=== PATIENT | female | born 1960 | race Caucasian/White ===

== ENCOUNTER 2016-11-05 14:40 | Inpatient (IN) | payer OTHER ==
[~2016-11-05] VITALS: Ht 167.6 cm; Wt 48.3 kg
[2016-11-05] MEDS ORDERED: SODIUM CHLORIDE 0.9% 1,000 ML IV ONE (15:14)
[2016-11-05 15:30] LABS: HEMATOCRIT 42.5 % (34.6-47.8); HEMOGLOBIN 14.2 g/dL (11.7-16.4)
[2016-11-05] MEDS ORDERED: MORPHINE SULFATE 4 MG/ML, 1ML IVPush PRN (15:30)
[2016-11-05] MEDS ORDERED: ONDANSETRON 2MG/ML, 2ML IVPush ONE (15:30)
[2016-11-05] MEDS ORDERED: SODIUM CHLORIDE 0.9% 1,000ML IVBOLUS ONE (15:30)
[2016-11-05 15:41] LABS: BLOOD UREA NITROGEN 14 mg/dL (7-18)
[2016-11-05 15:45] LABS: ASPARTATE AMINO TRANSFERASE 28 U/L (15-37)
[2016-11-05] MEDS ORDERED: ONDANSETRON 2MG/ML, 2ML ONE (16:16)
[2016-11-05] MEDS ORDERED: MORPHINE SULFATE 4 MG/ML, 1ML ONE (16:16)
[2016-11-05 16:25] LABS: PATH.CAST-FLAG NOT PRESENT; SPERM-FLAG NOT PRESENT; SRC-FLAG NOT PRESENT; XTAL-FLAG NOT PRESENT; YLC-FLAG NOT PRESENT
[2016-11-05] MEDS ORDERED: PROM12.55 PO (16:57)
[2016-11-05] MEDS ORDERED: OXYC-306 PO (16:57)
[2016-11-05] MEDS ORDERED: ZOLP-413 PO (16:57)
[2016-11-05] MEDS ORDERED: D-ME1CAP40 PO (16:57)
[2016-11-05] MEDS ORDERED: hydrALAzine 20 MG/ML, 1ML IVPush PRN (17:30)
[2016-11-05] MEDS ORDERED: ONDANSETRON 2MG/ML, 2ML IVPush PRN (17:30)
[2016-11-05] MEDS: SODIUM CHLORIDE 0.9% 1,000 ML IV SCH (21:09)
[2016-11-05] MEDS: morphine SULFATE 10 MG/ML, 1ML IVPush PRN ×2 (21:09→21:38)
[2016-11-05] MEDS: CEFTRIAXONE PMX 1GM/50ML 50 ML IV SCH (21:09)
[2016-11-05 21:45] VITALS: BP 123/78
[2016-11-05 22:02] VITALS: BP 123/78
[2016-11-06] MEDS: ZOLPIDEM 5MG TABLET PO PRN ×2 (01:02→21:42)
[2016-11-06 01:03] VITALS: BP 108/68
[2016-11-06] MEDS: SODIUM CHLORIDE 0.9% 1,000 ML IV SCH ×3 (03:30→17:41)
[2016-11-06 06:05] LABS: ASPARTATE AMINO TRANSFERASE 22 U/L (15-37); BLOOD UREA NITROGEN 13 mg/dL (7-18)
[2016-11-06 07:10] VITALS: BP 118/72
[2016-11-06] MEDS: PANTOPRAZOLE 40 MG IV IVPush SCH (08:13)
[2016-11-06] MEDS: IBUPROFEN 200 MG TABLET PO PRN ×2 (10:21→16:44)
[2016-11-06 13:42] VITALS: BP 121/73
[2016-11-06] MEDS: morphine SULFATE 10 MG/ML, 1ML IVPush PRN (16:00)
[2016-11-06] MEDS: CEFTRIAXONE PMX 1GM/50ML 50 ML IV SCH (17:41)
[2016-11-06] MEDS ORDERED: OXYcodone/APAP 7.5/325MG TABLET PO PRN (20:00)
[2016-11-06] MEDS: ARTIFICIAL TEARS OPHTH SOLN 15ML EACHEYE PRN (21:42)
[2016-11-07] MEDS: SODIUM CHLORIDE 0.9% 1,000 ML IV SCH ×2 (01:07→07:15)
[2016-11-07 01:10] VITALS: BP 119/74
[2016-11-07] MEDS: IBUPROFEN 200 MG TABLET PO PRN ×2 (01:13→11:18)
[2016-11-07 06:31] LABS: BLOOD UREA NITROGEN 7 mg/dL (7-18)
[2016-11-07 06:34] LABS: ASPARTATE AMINO TRANSFERASE 21 U/L (15-37)
[2016-11-07] MEDS: PANTOPRAZOLE 40 MG IV IVPush SCH (08:41)
[2016-11-07] MEDS: ARTIFICIAL TEARS OPHTH SOLN 15ML EACHEYE PRN (11:24)
[2016-11-07] MEDS ORDERED: KETO10TA PO (12:33)
== END 2016-11-07 15:25 | disposition home or self-care (01) | DRG 439 ==
LOC: ED 16:57 → EDIP 16:58 → ED 17:15 → SUATTDRO 17:18 → 3NE 18:36 → DCLOUNGE 11-07 15:11
PROVIDERS: ADMIT Hospitalist; ATTEND Internal Medicine
DX: K85.90 Acute pancreatitis without necrosis or infection, unspecified (principal); N39.0 Urinary tract infection, site not specified; F11.20 Opioid dependence, uncomplicated; K86.1 Other chronic pancreatitis; G89.29 Other chronic pain; Z80.3 Family history of malignant neoplasm of breast; Z82.49 Family history of ischemic heart disease and other diseases of the circulatory system; Z90.49 Acquired absence of other specified parts of digestive tract; Z90.710 Acquired absence of both cervix and uterus
CPT/HCPCS: 36415; 80053; 81001; 83690; 83735; 84100; 85025; 87040; 87086; 87186; 96361; 96374; 96375; J0696; J2405; C9113; J2270; J7030